=== PATIENT | female | born 1940 | race Hispanic/Latino ===

== ENCOUNTER → 2017-07-10 | Outpatient (CLI) | payer OTHER ==
[~2017-07-10] MED LIST: AEC81 PO; ALBUTEROL SULFATE 0.083% 2.5 MG/3 ML INH IH ONE; ALLO100T PO; ALPR0.5T8 PO; APIX5TAB PO; ASCO1TAB13 PO; ATOR10TA69 PO; CALC-691 PO; CALC1TAB15 PO; CALCIUM CARB PO; CARV12.511 PO; CARV6.25 PO; CYAN500 PO; CYCL30DR OU; DIGO125T87 PO; DILT120C89 PO; DOXY100C2 PO; ESTR42.53 VG; FAMO20TA8 PO; FERS325 PO; FOLI1TAB15 PO; FURO-151 PO; FURO20TA4 PO; FURO20TA6 PO; FURO40TA7 PO; KYOLIC PO; LISI2.5T2 PO; MELA5CAP PO; METO75TA PO; MILK OF MAG; MULT-1258 PO; ONDA4TAB4 PO; POLY17PO4 PO; POTA-9 PO; POTA10TA14 PO; PYRI100T2 PO; ROSU5TAB PO; SODI30SP3 EN; SPIR25TA4 PO; THIA100T75 PO; TOLT4CAP PO; TRAM50TA4 PO; VENL-53 PO; ZINC220C6 PO; ZINC50TA4 PO; ZOFRAN; [UNRECOGNIZED DRUG - OTHER]; estrogen VG
== END | disposition home or self-care (01) ==
LOC: RESP 08:40
PROVIDERS: ATTEND Internal Medicine
DX: J90 Pleural effusion, not elsewhere classified (principal)
CPT/HCPCS: 94060; 94727; 94729

== ENCOUNTER 2017-09-13 13:53 | Inpatient (IN) | payer OTHER ==
[~2017-09-13] VITALS: Ht 154.9 cm; Wt 73.2 kg
[~2017-09-13 13:53] MED LIST changes: -ALBUTEROL SULFATE 0.083% 2.5 MG/3 ML INH IH ONE; -ATOR10TA69 PO; -CALC1TAB15 PO; -CALCIUM CARB PO; -CARV12.511 PO; -CARV6.25 PO; -DIGO125T87 PO; -DOXY100C2 PO; -FAMO20TA8 PO; -FERS325 PO; -FURO20TA4 PO; -FURO20TA6 PO; -FURO40TA7 PO; -LISI2.5T2 PO; -MELA5CAP PO; -MILK OF MAG; -ONDA4TAB4 PO; -POTA-9 PO; -SPIR25TA4 PO; -VENL-53 PO; -ZINC220C6 PO; -ZOFRAN; -[UNRECOGNIZED DRUG - OTHER]; -estrogen VG
[2017-09-13 14:23] LABS: BASOPHILS % (AUTO) 0.4 % (0.0-5.0); EOSINOPHILS % (AUTO) 1.6 % (0.0-8.0); HEMATOCRIT 31.3 % (36-48); LYMPHOCYTES % (AUTO) 5.6 % (21.0-51.0); MEAN CORPUSCULAR HEMOGLOBIN 21.8 pg (27.0-33.0); MEAN CORPUSCULAR HGB CONC 30.5 g/dL (32.0-36.0); MEAN CORPUSCULAR VOLUME 71.7 fL (79-99); MONOCYTES % (AUTO) 10.9 % (3.0-13.0); NEUTROPHILS % (AUTO) 81.5 % (40.0-77.0); PLATELET COUNT (AUTO) 228 K/uL (130-400); RED BLOOD CELL COUNT(AUTO) 4.36 MIL/uL (4.00-5.50); RED CELL DISTRIBUTION WIDTH 20.9 % (11.0-15.5)
[2017-09-13 14:35] LABS: CREATININE 1.1 mg/dL (0.5-1.5)
[2017-09-13 14:46] LABS: B-TYPE NATRIURETIC PEPTIDE 776 pg/mL (0-100)
[2017-09-13 14:49] LABS: BILIRUBIN,TOTAL 1.1 mg/dL (0.2-1.0); T4 (THYROXINE) 7.4 mcg/dL (4.7-13.3); THYROID STIMULATING HORMONE 2.91 uIU/mL (0.36-3.74); TOTAL PROTEIN, SERUM 6.6 g/dL (6.0-8.3)
[2017-09-13] MEDS ORDERED: FUROSEMIDE 10 MG/ML 4ML VIAL ONE (15:17)
[2017-09-13 15:45] LABS: HEMOGLOBIN A1C 5.9 % (4.0-6.0)
[2017-09-13 15:55] VITALS: BP 118/69
[2017-09-13] MEDS ORDERED: POTA-9 PO (16:10)
[2017-09-13] MEDS ORDERED: CALC1TAB15 PO (16:10)
[2017-09-13] MEDS ORDERED: FURO20TA4 PO (16:10)
[2017-09-13] MEDS ORDERED: ZINC220C6 PO (16:10)
[2017-09-13] MEDS ORDERED: GLUCAGON 1MG KIT 1 MG ML IM PRN (16:15)
[2017-09-13] MEDS ORDERED: DEXTROSE 50%-WATER 50 ML DISP.SYRIN IV PRN (16:15)
[2017-09-13] MEDS ORDERED: SODIUM CHLORIDE 0.9% 10 ML VIAL IVP SCH (16:30)
[2017-09-13] MEDS ORDERED: DIPHENHYDRAMINE HCL 25 MG CAPSULE PO PRN (16:30)
[2017-09-13] MEDS ORDERED: ACETAMINOPHEN 325 MG TAB PO PRN (16:30)
[2017-09-13] MEDS: INSULIN HUMULIN R 100 UNIT/ML 3ML SQ SCH ×2 (16:30→20:24)
[2017-09-13] MEDS ORDERED: ONDANSETRON HCL MDV 20ML 2 MG/ML VIAL IVP PRN (16:45)
[2017-09-13] MEDS: POTASSIUM CHLORIDE 10% ELIXIR 20 MEQ/15 ML UDCUP PO PRN (17:01)
[2017-09-13] MEDS: POTASSIUM CHLORIDE 20 MEQ ERTAB PO PRN (17:01)
[2017-09-13] MEDS: POTASSIUM CHLORIDE 20MEQ/100ML 100 ML IV PRN (17:02)
[2017-09-13] MEDS: LIDOCAINE HCL-MPF 1% 2ML VIAL IVP PRN (17:02)
[2017-09-13 19:32] VITALS: BP 97/58
[2017-09-13] MEDS: FUROSEMIDE 10 MG/ML 4ML VIAL IV SCH (20:22)
[2017-09-13 23:13] VITALS: BP 109/58
[2017-09-14 00:18] LABS: CREATINE KINASE MB 0.8 ng/mL (0.5-3.6); CREATINE KINASE, TOTAL 27 U/L (21-232); MYOGLOBIN 38 ng/mL (10-92); TROPONIN I < 0.04 ng/mL (0.00-0.06)
[2017-09-14 01:05] LABS: % IRON SATURATION 4.5 % (22-44); FERRITIN 21 ng/mL (15-150); IRON, SERUM 17 mcg/dL (50-170); TOTAL IRON BINDING CAPACITY 373 mcg/dL (250-450)
[2017-09-14 03:44] VITALS: BP 99/57
[2017-09-14 06:01] LABS: RETICULOCYTE % (AUTO) 1.98 % (0.42-2.23)
[2017-09-14] MEDS: INSULIN HUMULIN R 100 UNIT/ML 3ML SQ SCH ×4 (06:16→21:00)
[2017-09-14] MEDS: FUROSEMIDE 10 MG/ML 4ML VIAL IV SCH ×2 (06:16→13:42)
[2017-09-14 06:17] LABS: POTASSIUM 3.3 mmol/L (3.5-5.1)
[2017-09-14] MEDS: POTASSIUM CHLORIDE 10% ELIXIR 20 MEQ/15 ML UDCUP PO PRN (06:24)
[2017-09-14] MEDS: POTASSIUM CHLORIDE 20MEQ/100ML 100 ML IV PRN (06:25)
[2017-09-14 06:30] LABS: CREATINE KINASE, TOTAL 24 U/L (21-232); MYOGLOBIN 35 ng/mL (10-92); TROPONIN I < 0.04 ng/mL (0.00-0.06)
[2017-09-14 07:00] VITALS: BP 103/65
[2017-09-14] MEDS: FAMOTIDINE 20MG TAB 20 MG TAB PO SCH ×2 (08:14→22:13)
[2017-09-14] MEDS ORDERED: COMPOUND IV MISC 1 EACH IVSOLN MISC PRN (10:00)
[2017-09-14 11:00] VITALS: BP 102/55
[2017-09-14] MEDS: IRON SUCROSE COMPLEX 100 MG in SODIUM CHLORIDE 0.9% 50 ML IV SCH (12:05)
[2017-09-14 16:00] VITALS: BP 98/60
[2017-09-14 19:47] VITALS: BP 94/58
[2017-09-14] MEDS ORDERED: METOPROLOL TARTRATE 25 MG TAB PO SCH ×2 (21:00)
[2017-09-14] MEDS: ATORVASTATIN CALCIUM 10 MG TABLET PO SCH (22:13)
[2017-09-14] MEDS: ALPRAZOLAM 0.5 MG TABLET PO SCH (22:13)
[2017-09-14] MEDS: METOPROLOL TARTRATE 25 MG TAB PO SCH (22:13)
[2017-09-14 23:31] VITALS: BP 104/49
[2017-09-15 03:47] VITALS: BP 99/51
[2017-09-15 04:18] LABS: MEAN CORPUSCULAR HEMOGLOBIN 22.4 pg (27.0-33.0); MEAN CORPUSCULAR HGB CONC 31.2 g/dL (32.0-36.0); MEAN CORPUSCULAR VOLUME 71.6 fL (79-99); PLATELET COUNT (AUTO) 198 K/uL (130-400); RED BLOOD CELL COUNT(AUTO) 3.63 MIL/uL (4.00-5.50); WHITE BLOOD COUNT (AUTO) 5.4 K/uL (4.8-10.8)
[2017-09-15 04:41] LABS: POTASSIUM 2.7 mmol/L (3.5-5.1)
[2017-09-15 04:45] LABS: B-TYPE NATRIURETIC PEPTIDE 467 pg/mL (0-100)
[2017-09-15] MEDS: INSULIN HUMULIN R 100 UNIT/ML 3ML SQ SCH ×4 (05:34→21:00)
[2017-09-15] MEDS: POTASSIUM CHLORIDE 20 MEQ ERTAB PO PRN ×2 (05:35→13:54)
[2017-09-15] MEDS: POTASSIUM CHLORIDE 20MEQ/100ML 100 ML IV PRN ×2 (05:36→10:40)
[2017-09-15] MEDS: LIDOCAINE HCL-MPF 1% 2ML VIAL IVP PRN ×2 (05:36→10:40)
[2017-09-15 07:00] VITALS: BP 100/57
[2017-09-15] MEDS ORDERED: DILTIAZEM HCL 120 MG CAP.SR.24H PO SCH (09:00)
[2017-09-15] MEDS: PYRIDOXINE HCL 50 MG TABLET PO SCH (09:00)
[2017-09-15] MEDS ORDERED: ENOXAPARIN SODIUM 40 MG/0.4 ML SYRINGE SQ SCH (09:00)
[2017-09-15] MEDS: DETROL 4 MG PO SCH (09:00)
[2017-09-15] MEDS: POTASSIUM CHLORIDE 10 MEQ/TAB.SA PO SCH (09:00)
[2017-09-15] MEDS ORDERED: SODIUM CHLORIDE 0.9% 250 ML IV ONE (10:14)
[2017-09-15] MEDS: FOLIC ACID 1 MG TABLET PO SCH (10:39)
[2017-09-15] MEDS: CALCIUM CARBONATE 500 MG TABLET PO SCH (10:39)
[2017-09-15] MEDS: POTASSIUM CHLORIDE 10% ELIXIR 20 MEQ/15 ML UDCUP PO PRN (10:39)
[2017-09-15] MEDS: ALLOPURINOL 100 MG TABLET PO SCH (10:39)
[2017-09-15] MEDS: ALPRAZOLAM 0.5 MG TABLET PO SCH ×2 (10:39→20:45)
[2017-09-15] MEDS: METOPROLOL TARTRATE 25 MG TAB PO SCH ×2 (10:39→20:45)
[2017-09-15] MEDS: THIAMINE HCL 100 MG TABLET PO SCH (10:40)
[2017-09-15] MEDS: FUROSEMIDE 10 MG/ML 4ML VIAL IV SCH ×2 (10:41→20:45)
[2017-09-15 10:44] LABS: INR 1.18 (0.85-1.15); PROTHROMBIN TIME 12.1 SEC (9.6-11.6)
[2017-09-15 11:00] VITALS: BP 93/59
[2017-09-15] MEDS: IRON SUCROSE COMPLEX 100 MG in SODIUM CHLORIDE 0.9% 50 ML IV SCH (13:55)
[2017-09-15] MEDS: ASPIRIN 81 MG EC TAB PO SCH (14:00)
[2017-09-15] MEDS: FAMOTIDINE 20MG TAB 20 MG TAB PO SCH ×2 (14:00→20:45)
[2017-09-15] MEDS: ZINC SULFATE 220 CAPSULE PO SCH (14:00)
[2017-09-15 16:00] VITALS: BP 109/53
[2017-09-15 20:08] VITALS: BP 103/58
[2017-09-15] MEDS: ATORVASTATIN CALCIUM 10 MG TABLET PO SCH (20:56)
[2017-09-15 23:30] VITALS: BP 118/65
[2017-09-16 03:56] VITALS: BP 95/53
[2017-09-16 04:16] LABS: HEMATOCRIT 25.8 % (36-48); MEAN CORPUSCULAR HEMOGLOBIN 23.1 pg (27.0-33.0); MEAN CORPUSCULAR HGB CONC 32.5 g/dL (32.0-36.0); NUCLEATED RED BLOOD CELLS 0.2 % (0.0-0.19); PLATELET COUNT (AUTO) 186 K/uL (130-400); RED BLOOD CELL COUNT(AUTO) 3.64 MIL/uL (4.00-5.50); RED CELL DISTRIBUTION WIDTH 21.1 % (11.0-15.5); WHITE BLOOD COUNT (AUTO) 5.9 K/uL (4.8-10.8)
[2017-09-16 04:25] LABS: MAGNESIUM 1.8 mg/dL (1.80-2.40); POTASSIUM 3.3 mmol/L (3.5-5.1)
[2017-09-16 05:04] LABS: LYMPHOCYTES % (MANUAL) 10 % (22-44); METAMYELOCYTES % 1 % (0-0); MONOCYTES % (MANUAL) 7 % (2-9); SEGMENTED NEUTROPHILS % 82 % (40-70)
[2017-09-16 05:05] LABS: MAN.DIFF COMMENT-IMPRESSION MANUAL DIFFERENTIAL
[2017-09-16] MEDS: MAGNESIUM 2GM PREMIX 50ML 50 ML IV SCH (06:01)
[2017-09-16] MEDS: POTASSIUM CHLORIDE 20 MEQ ERTAB PO PRN (06:02)
[2017-09-16] MEDS: INSULIN HUMULIN R 100 UNIT/ML 3ML SQ SCH ×4 (06:43→21:00)
[2017-09-16 07:58] VITALS: BP 96/61
[2017-09-16] MEDS ORDERED: LIDOCAINE HCL 1% 20 ML VIAL ONE (08:52)
[2017-09-16] MEDS: DETROL 4 MG PO SCH (09:00)
[2017-09-16] MEDS: PYRIDOXINE HCL 50 MG TABLET PO SCH (09:00)
[2017-09-16] MEDS: CALCIUM CARBONATE 500 MG TABLET PO SCH (10:19)
[2017-09-16] MEDS: FOLIC ACID 1 MG TABLET PO SCH (10:19)
[2017-09-16] MEDS: ALPRAZOLAM 0.5 MG TABLET PO SCH ×2 (10:19→21:42)
[2017-09-16] MEDS: THIAMINE HCL 100 MG TABLET PO SCH (10:19)
[2017-09-16] MEDS: ALLOPURINOL 100 MG TABLET PO SCH (10:20)
[2017-09-16] MEDS: ASPIRIN 81 MG EC TAB PO SCH (10:20)
[2017-09-16] MEDS: IRON SUCROSE COMPLEX 100 MG in SODIUM CHLORIDE 0.9% 50 ML IV SCH (10:20)
[2017-09-16] MEDS: POTASSIUM CHLORIDE 10 MEQ/TAB.SA PO SCH (10:20)
[2017-09-16] MEDS: FAMOTIDINE 20MG TAB 20 MG TAB PO SCH ×2 (10:27→21:46)
[2017-09-16] MEDS: ZINC SULFATE 220 CAPSULE PO SCH (10:27)
[2017-09-16] MEDS: FUROSEMIDE 10 MG/ML 4ML VIAL IV SCH (10:27)
[2017-09-16] MEDS: ENOXAPARIN SODIUM 60 MG/0.6 ML SQ SCH ×2 (10:30→21:44)
[2017-09-16 11:06] LABS: GLUCOSE,BODY FLUID 115 mg/dL (1-40)
[2017-09-16] MEDS: METOPROLOL TARTRATE 50 MG TAB PO SCH ×3 (11:07→21:42)
[2017-09-16 11:18] VITALS: BP 110/75
[2017-09-16 12:14] LABS: APPEARANCE BODY FLUID TURBID (CLEAR); BODY FLUID WBC 225 /cu. mm.; COLOR,BODY FLUID RED (LT YELLOW); SPECIMENTYPE,BODY FLUID THORACENTESIS
[2017-09-16 12:15] LABS: BODY FLUID RBC 34638 /cu. mm.
[2017-09-16 12:34] LABS: TOTAL VOLUME,BODY FLUID 7000 mL
[2017-09-16 12:44] LABS: BF LYMPHOCYTE 20 %; BF MESOTHELIAL 70 %; BF MONOCYTE 8 %
[2017-09-16 12:45] LABS: PH, BODY FLUID 8
[2017-09-16 16:05] VITALS: BP 110/57
[2017-09-16 19:59] VITALS: BP 92/56
[2017-09-16] MEDS ORDERED: ENOXAPARIN SODIUM 0.5 MG/KG EACH SQ SCH (21:00)
[2017-09-16] MEDS: ATORVASTATIN CALCIUM 10 MG TABLET PO SCH (21:41)
[2017-09-16 23:37] VITALS: BP 99/59
[2017-09-17 04:00] VITALS: BP 101/67
[2017-09-17 04:07] LABS: CREATININE 0.9 mg/dL (0.5-1.5); POTASSIUM 3.2 mmol/L (3.5-5.1)
[2017-09-17 07:00] VITALS: BP 104/57
[2017-09-17] MEDS: INSULIN HUMULIN R 100 UNIT/ML 3ML SQ SCH ×5 (07:26→21:00)
[2017-09-17] MEDS ORDERED: AMIODARONE HCL 150 MG in DEXTROSE 5%-WATER 100 ML IV SCH (08:30)
[2017-09-17] MEDS: METOPROLOL TARTRATE 50 MG TAB PO SCH ×4 (09:00→21:44)
[2017-09-17] MEDS: PYRIDOXINE HCL 50 MG TABLET PO SCH (09:00)
[2017-09-17] MEDS: DETROL 4 MG PO SCH (09:00)
[2017-09-17] MEDS: ASPIRIN 81 MG EC TAB PO SCH (10:43)
[2017-09-17] MEDS: THIAMINE HCL 100 MG TABLET PO SCH (10:43)
[2017-09-17] MEDS: ALPRAZOLAM 0.5 MG TABLET PO SCH ×2 (10:44→21:44)
[2017-09-17] MEDS: CALCIUM CARBONATE 500 MG TABLET PO SCH (10:44)
[2017-09-17] MEDS: FOLIC ACID 1 MG TABLET PO SCH (10:44)
[2017-09-17] MEDS: ALLOPURINOL 100 MG TABLET PO SCH (10:45)
[2017-09-17] MEDS: POTASSIUM CHLORIDE 10 MEQ/TAB.SA PO SCH (10:45)
[2017-09-17] MEDS: ENOXAPARIN SODIUM 60 MG/0.6 ML SQ SCH ×2 (10:47→20:36)
[2017-09-17] MEDS: IRON SUCROSE COMPLEX 100 MG in SODIUM CHLORIDE 0.9% 50 ML IV SCH (11:07)
[2017-09-17] MEDS: ZINC SULFATE 220 CAPSULE PO SCH (11:07)
[2017-09-17] MEDS: POTASSIUM CHLORIDE 20 MEQ ERTAB PO PRN ×3 (11:07→18:34)
[2017-09-17] MEDS: FAMOTIDINE 20MG TAB 20 MG TAB PO SCH ×2 (11:07→21:44)
[2017-09-17 11:42] VITALS: BP 94/58
[2017-09-17] MEDS: TRAMADOL HCL 50 MG TABLET PO PRN (16:31)
[2017-09-17 16:42] VITALS: BP 100/68
[2017-09-17 19:53] VITALS: BP 94/53
[2017-09-17] MEDS: ENOXAPARIN SODIUM 100 MG/1 ML SQ SCH (21:43)
[2017-09-17] MEDS: ATORVASTATIN CALCIUM 10 MG TABLET PO SCH (21:44)
[2017-09-18] VITALS (9 sets, daily range): BP systolic 87–105; BP diastolic 52–64
[2017-09-18 03:54] LABS: BASOPHILS % (AUTO) 0.8 % (0.0-5.0); EOSINOPHILS % (AUTO) 2.9 % (0.0-8.0); HEMATOCRIT 26.7 % (36-48); LYMPHOCYTES % (AUTO) 7.6 % (21.0-51.0); MEAN CORPUSCULAR HEMOGLOBIN 23.8 pg (27.0-33.0); MEAN CORPUSCULAR VOLUME 72.2 fL (79-99); MONOCYTES % (AUTO) 10.8 % (3.0-13.0); NEUTROPHILS % (AUTO) 77.9 % (40.0-77.0); NUCLEATED RED BLOOD CELLS 0.2 % (0.0-0.19); PLATELET COUNT (AUTO) 189 K/uL (130-400); RED CELL DISTRIBUTION WIDTH 21.1 % (11.0-15.5); WHITE BLOOD COUNT (AUTO) 5.6 K/uL (4.8-10.8)
[2017-09-18 04:10] LABS: POTASSIUM 3.8 mmol/L (3.5-5.1)
[2017-09-18] MEDS: INSULIN HUMULIN R 100 UNIT/ML 3ML SQ SCH ×3 (06:57→20:51)
[2017-09-18] MEDS: DETROL 4 MG PO SCH (09:00)
[2017-09-18] MEDS: ENOXAPARIN SODIUM 60 MG/0.6 ML SQ SCH (09:00)
[2017-09-18] MEDS: ZINC SULFATE 220 CAPSULE PO SCH (09:00)
[2017-09-18] MEDS: PYRIDOXINE HCL 50 MG TABLET PO SCH (09:00)
[2017-09-18] MEDS: METOPROLOL TARTRATE 50 MG TAB PO SCH ×3 (09:00→20:55)
[2017-09-18] MEDS: ALPRAZOLAM 0.5 MG TABLET PO SCH ×2 (09:00→20:59)
[2017-09-18] MEDS: IRON SUCROSE COMPLEX 100 MG in SODIUM CHLORIDE 0.9% 50 ML IV SCH (09:00)
[2017-09-18] MEDS: ALLOPURINOL 100 MG TABLET PO SCH (09:28)
[2017-09-18] MEDS: FAMOTIDINE 20MG TAB 20 MG TAB PO SCH ×2 (09:28→20:59)
[2017-09-18] MEDS: FOLIC ACID 1 MG TABLET PO SCH (09:28)
[2017-09-18] MEDS: THIAMINE HCL 100 MG TABLET PO SCH (09:28)
[2017-09-18] MEDS: POTASSIUM CHLORIDE 10 MEQ/TAB.SA PO SCH (09:28)
[2017-09-18] MEDS: CALCIUM CARBONATE 500 MG TABLET PO SCH (09:28)
[2017-09-18] MEDS: ASPIRIN 81 MG EC TAB PO SCH (09:28)
[2017-09-18] MEDS: ENOXAPARIN SODIUM 100 MG/1 ML SQ SCH ×2 (09:29→21:00)
[2017-09-18] MEDS: ATORVASTATIN CALCIUM 10 MG TABLET PO SCH (20:59)
[2017-09-18] MEDS ORDERED: AMIODARONE HCL 200 MG TABLET PO SCH (21:00)
[2017-09-19] VITALS (7 sets, daily range): BP systolic 92–116; BP diastolic 45–66
[2017-09-19 03:55] LABS: HEMATOCRIT 27.6 % (36-48); MEAN CORPUSCULAR HEMOGLOBIN 23.8 pg (27.0-33.0); MEAN CORPUSCULAR HGB CONC 32.3 g/dL (32.0-36.0); MEAN CORPUSCULAR VOLUME 73.5 fL (79-99); NUCLEATED RED BLOOD CELLS 0.1 % (0.0-0.19); PLATELET COUNT (AUTO) 193 K/uL (130-400); RED BLOOD CELL COUNT(AUTO) 3.76 MIL/uL (4.00-5.50); RED CELL DISTRIBUTION WIDTH 21.6 % (11.0-15.5); WHITE BLOOD COUNT (AUTO) 5.5 K/uL (4.8-10.8)
[2017-09-19 04:06] LABS: CREATININE 0.9 mg/dL (0.5-1.5); POTASSIUM 3.5 mmol/L (3.5-5.1)
[2017-09-19] MEDS: INSULIN HUMULIN R 100 UNIT/ML 3ML SQ SCH ×4 (06:01→20:59)
[2017-09-19] MEDS ORDERED: DIGOXIN 250 MCG/ML 2ML AMP IV SCH (07:45)
[2017-09-19] MEDS: FAMOTIDINE 20MG TAB 20 MG TAB PO SCH ×2 (08:16→20:23)
[2017-09-19] MEDS: ASPIRIN 81 MG EC TAB PO SCH (08:16)
[2017-09-19] MEDS: ALLOPURINOL 100 MG TABLET PO SCH (08:17)
[2017-09-19] MEDS: CALCIUM CARBONATE 500 MG TABLET PO SCH (08:17)
[2017-09-19] MEDS: IRON SUCROSE COMPLEX 100 MG in SODIUM CHLORIDE 0.9% 50 ML IV SCH (08:17)
[2017-09-19] MEDS: THIAMINE HCL 100 MG TABLET PO SCH (08:17)
[2017-09-19] MEDS: POTASSIUM CHLORIDE 10 MEQ/TAB.SA PO SCH (08:17)
[2017-09-19] MEDS: FOLIC ACID 1 MG TABLET PO SCH (08:17)
[2017-09-19] MEDS: ENOXAPARIN SODIUM 100 MG/1 ML SQ SCH ×2 (08:19→20:23)
[2017-09-19] MEDS: PYRIDOXINE HCL 50 MG TABLET PO SCH (09:00)
[2017-09-19] MEDS: METOPROLOL TARTRATE 50 MG TAB PO SCH ×2 (09:00→20:24)
[2017-09-19] MEDS: ALPRAZOLAM 0.5 MG TABLET PO SCH ×2 (09:00→20:24)
[2017-09-19] MEDS: DETROL 4 MG PO SCH (09:00)
[2017-09-19] MEDS: ZINC SULFATE 220 CAPSULE PO SCH (09:00)
[2017-09-19] MEDS: AMIODARONE HCL 200 MG TABLET PO SCH (10:38)
[2017-09-19] MEDS: FUROSEMIDE 10 MG/ML 4ML VIAL IV SCH ×2 (10:39→22:09)
[2017-09-19] MEDS: DIGOXIN 250 MCG/ML 2ML AMP IV SCH ×2 (14:00→22:00)
[2017-09-19] MEDS: ATORVASTATIN CALCIUM 10 MG TABLET PO SCH (20:23)
[2017-09-20] MEDS: DIGOXIN 250 MCG/ML 2ML AMP IV SCH ×2 (02:15→12:43)
[2017-09-20 03:29] LABS: CREATININE 0.9 mg/dL (0.5-1.5)
[2017-09-20 03:30] VITALS: BP 99/45
[2017-09-20] MEDS: POTASSIUM CHLORIDE 20 MEQ ERTAB PO PRN ×3 (03:51→12:34)
[2017-09-20] MEDS: INSULIN HUMULIN R 100 UNIT/ML 3ML SQ SCH ×4 (05:57→20:01)
[2017-09-20 07:26] VITALS: BP 105/48
[2017-09-20] MEDS: DETROL 4 MG PO SCH (09:00)
[2017-09-20] MEDS: POTASSIUM CHLORIDE 10 MEQ/TAB.SA PO SCH ×2 (09:00→09:38)
[2017-09-20] MEDS: CALCIUM CARBONATE 500 MG TABLET PO SCH (09:38)
[2017-09-20] MEDS: METOPROLOL TARTRATE 50 MG TAB PO SCH ×2 (09:38→20:28)
[2017-09-20] MEDS: FUROSEMIDE 40 MG TABLET PO SCH (09:38)
[2017-09-20] MEDS: THIAMINE HCL 100 MG TABLET PO SCH (09:38)
[2017-09-20] MEDS: FOLIC ACID 1 MG TABLET PO SCH (09:38)
[2017-09-20] MEDS: ALPRAZOLAM 0.5 MG TABLET PO SCH ×2 (09:39→20:28)
[2017-09-20] MEDS: ALLOPURINOL 100 MG TABLET PO SCH (09:39)
[2017-09-20] MEDS: ASPIRIN 81 MG EC TAB PO SCH (09:39)
[2017-09-20] MEDS: AMIODARONE HCL 200 MG TABLET PO SCH (09:39)
[2017-09-20] MEDS: FAMOTIDINE 20MG TAB 20 MG TAB PO SCH ×2 (09:39→20:28)
[2017-09-20] MEDS: ENOXAPARIN SODIUM 100 MG/1 ML SQ SCH ×2 (09:40→20:28)
[2017-09-20] MEDS: IRON SUCROSE COMPLEX 100 MG in SODIUM CHLORIDE 0.9% 50 ML IV SCH (09:41)
[2017-09-20 11:21] VITALS: BP 93/42
[2017-09-20] MEDS: ZINC SULFATE 220 CAPSULE PO SCH (12:32)
[2017-09-20] MEDS: PYRIDOXINE HCL 50 MG TABLET PO SCH (12:33)
[2017-09-20 16:19] VITALS: BP 121/59
[2017-09-20 19:45] VITALS: BP 110/56
[2017-09-20] MEDS: ATORVASTATIN CALCIUM 10 MG TABLET PO SCH (20:28)
[2017-09-20 23:23] VITALS: BP 108/64
[2017-09-21 03:21] VITALS: BP 100/53
[2017-09-21 04:16] LABS: HEMATOCRIT 28.4 % (36-48); MEAN CORPUSCULAR HEMOGLOBIN 23.1 pg (27.0-33.0); MEAN CORPUSCULAR HGB CONC 30.9 g/dL (32.0-36.0); MEAN CORPUSCULAR VOLUME 74.9 fL (79-99); PLATELET COUNT (AUTO) 170 K/uL (130-400); RED BLOOD CELL COUNT(AUTO) 3.79 MIL/uL (4.00-5.50); RED CELL DISTRIBUTION WIDTH 22.2 % (11.0-15.5); WHITE BLOOD COUNT (AUTO) 3.9 K/uL (4.8-10.8)
[2017-09-21 04:30] LABS: CREATININE 0.8 mg/dL (0.5-1.5); POTASSIUM 3.6 mmol/L (3.5-5.1)
[2017-09-21 05:11] LABS: B-TYPE NATRIURETIC PEPTIDE 989 pg/mL (0-100)
[2017-09-21] MEDS: INSULIN HUMULIN R 100 UNIT/ML 3ML SQ SCH ×4 (06:01→21:00)
[2017-09-21 07:20] VITALS: BP 99/46
[2017-09-21] MEDS ORDERED: FUROSEMIDE 10 MG/ML 4ML VIAL IV SCH (08:30)
[2017-09-21] MEDS: DETROL 4 MG PO SCH (09:00)
[2017-09-21] MEDS: ZINC SULFATE 220 CAPSULE PO SCH (09:00)
[2017-09-21] MEDS: PYRIDOXINE HCL 50 MG TABLET PO SCH (09:00)
[2017-09-21] MEDS: ALPRAZOLAM 0.5 MG TABLET PO SCH ×2 (09:00→20:18)
[2017-09-21] MEDS: POTASSIUM CHLORIDE 10 MEQ/TAB.SA PO SCH ×2 (09:00→09:05)
[2017-09-21] MEDS: FOLIC ACID 1 MG TABLET PO SCH (09:04)
[2017-09-21] MEDS: CALCIUM CARBONATE 500 MG TABLET PO SCH (09:04)
[2017-09-21] MEDS: FAMOTIDINE 20MG TAB 20 MG TAB PO SCH ×2 (09:04→20:18)
[2017-09-21] MEDS: THIAMINE HCL 100 MG TABLET PO SCH (09:05)
[2017-09-21] MEDS: FUROSEMIDE 40 MG TABLET PO SCH (09:05)
[2017-09-21] MEDS: AMIODARONE HCL 200 MG TABLET PO SCH (09:05)
[2017-09-21] MEDS: ALLOPURINOL 100 MG TABLET PO SCH (09:05)
[2017-09-21] MEDS: ASPIRIN 81 MG EC TAB PO SCH (09:06)
[2017-09-21] MEDS: ENOXAPARIN SODIUM 100 MG/1 ML SQ SCH (09:08)
[2017-09-21 11:17] VITALS: BP 119/50
[2017-09-21] MEDS: IRON SUCROSE COMPLEX 100 MG in SODIUM CHLORIDE 0.9% 50 ML IV SCH (12:38)
[2017-09-21] MEDS: SPIRONOLACTONE 25 MG TAB PO SCH (12:38)
[2017-09-21] MEDS: CARVEDILOL 6.25 MG TABLET PO SCH ×2 (12:39→20:16)
[2017-09-21] MEDS: MILRINONE-D5W 20 MG/100 ML 100 ML IV SCH (12:50)
[2017-09-21 15:49] VITALS: BP 125/68
[2017-09-21] MEDS ORDERED: DIGOXIN 125 MCG TABLET PO SCH (16:00)
[2017-09-21 20:00] VITALS: BP 92/44
[2017-09-21] MEDS: FUROSEMIDE 10 MG/ML 4ML VIAL IV SCH (20:18)
[2017-09-21] MEDS: APIXABAN 5 MG TABLET PO SCH (20:18)
[2017-09-21] MEDS: ATORVASTATIN CALCIUM 10 MG TABLET PO SCH (20:18)
[2017-09-21 23:31] VITALS: BP 95/50
[2017-09-22] MEDS: MILRINONE-D5W 20 MG/100 ML 100 ML IV SCH ×2 (01:38→16:29)
[2017-09-22 03:32] VITALS: BP 120/59
[2017-09-22 04:42] LABS: CREATININE 0.7 mg/dL (0.5-1.5); POTASSIUM 3.3 mmol/L (3.5-5.1)
[2017-09-22] MEDS: POTASSIUM CHLORIDE 20 MEQ ERTAB PO PRN (05:57)
[2017-09-22] MEDS: INSULIN HUMULIN R 100 UNIT/ML 3ML SQ SCH ×4 (06:17→20:59)
[2017-09-22 07:10] VITALS: BP 116/59
[2017-09-22] MEDS: POTASSIUM CHLORIDE 10 MEQ/TAB.SA PO SCH ×2 (08:49→09:00)
[2017-09-22] MEDS: ASPIRIN 81 MG EC TAB PO SCH (08:49)
[2017-09-22] MEDS: ALLOPURINOL 100 MG TABLET PO SCH (08:49)
[2017-09-22] MEDS: FUROSEMIDE 10 MG/ML 4ML VIAL IV SCH ×2 (08:49→20:20)
[2017-09-22] MEDS: FOLIC ACID 1 MG TABLET PO SCH (08:49)
[2017-09-22] MEDS: FAMOTIDINE 20MG TAB 20 MG TAB PO SCH ×2 (08:50→20:20)
[2017-09-22] MEDS: APIXABAN 5 MG TABLET PO SCH ×2 (08:50→20:20)
[2017-09-22] MEDS: THIAMINE HCL 100 MG TABLET PO SCH (08:50)
[2017-09-22] MEDS: SPIRONOLACTONE 25 MG TAB PO SCH (08:50)
[2017-09-22] MEDS: CARVEDILOL 6.25 MG TABLET PO SCH ×2 (08:50→20:21)
[2017-09-22] MEDS: FUROSEMIDE 40 MG TABLET PO SCH (08:51)
[2017-09-22] MEDS: CALCIUM CARBONATE 500 MG TABLET PO SCH (08:51)
[2017-09-22] MEDS: IRON SUCROSE COMPLEX 100 MG in SODIUM CHLORIDE 0.9% 50 ML IV SCH (08:51)
[2017-09-22] MEDS: ZINC SULFATE 220 CAPSULE PO SCH (09:00)
[2017-09-22] MEDS: PYRIDOXINE HCL 50 MG TABLET PO SCH (09:00)
[2017-09-22] MEDS: DETROL 4 MG PO SCH (09:00)
[2017-09-22] MEDS: ALPRAZOLAM 0.5 MG TABLET PO SCH ×2 (09:00→20:20)
[2017-09-22 10:02] LABS: APPEARANCE,URINE Clear (CLEAR); BILIRUBIN,URINE Negative (NEGATIVE); COLOR,URINE Yellow (YELLOW); GLUCOSE, URINE (UA) Negative (NEGATIVE); KETONES,URINE Negative (NEGATIVE); LEUKOCYTE ESTERASE ,URINE Trace (NEGATIVE); NITRATE,URINE Negative (NEGATIVE); OCCULT BLOOD,URINE Negative (NEGATIVE); PROTEIN,URINE Negative (NEGATIVE); UROBILINOGEN,URINE 0.2 mg/dL (0.2-1.0)
[2017-09-22] MEDS: LISINOPRIL 5 MG TABLET PO SCH (10:15)
[2017-09-22 10:19] LABS: BACTERIA,URINE Rare /HPF (None Seen); RBC,URINE None Seen /HPF (0-1); WBC,URINE 0-1 /HPF (0-1)
[2017-09-22 11:10] VITALS: BP 108/61
[2017-09-22 16:10] VITALS: BP 103/59
[2017-09-22 19:48] VITALS: BP 100/53
[2017-09-22] MEDS: ATORVASTATIN CALCIUM 10 MG TABLET PO SCH (20:20)
[2017-09-23] VITALS (7 sets, daily range): BP systolic 91–112; BP diastolic 47–65
[2017-09-23 04:16] LABS: CREATININE 0.7 mg/dL (0.5-1.5); POTASSIUM 3.3 mmol/L (3.5-5.1)
[2017-09-23] MEDS: POTASSIUM CHLORIDE 20MEQ/100ML 100 ML IV PRN ×2 (05:45→09:28)
[2017-09-23] MEDS: LIDOCAINE HCL-MPF 1% 2ML VIAL IVP PRN (05:45)
[2017-09-23] MEDS: INSULIN HUMULIN R 100 UNIT/ML 3ML SQ SCH ×4 (06:32→21:00)
[2017-09-23] MEDS ORDERED: DIGOXIN 250 MCG/ML 2ML AMP IV SCH (08:30)
[2017-09-23] MEDS: PYRIDOXINE HCL 50 MG TABLET PO SCH (09:00)
[2017-09-23] MEDS ORDERED: ALPRAZOLAM 0.5 MG TABLET PO PRN (09:00)
[2017-09-23] MEDS: POTASSIUM CHLORIDE 10 MEQ/TAB.SA PO SCH ×2 (09:00)
[2017-09-23] MEDS: DETROL 4 MG PO SCH (09:00)
[2017-09-23] MEDS: ZINC SULFATE 220 CAPSULE PO SCH (09:00)
[2017-09-23] MEDS ORDERED: SODIUM CHLORIDE 0.9% 100 ML IV ONE (09:16)
[2017-09-23] MEDS: CARVEDILOL 6.25 MG TABLET PO SCH ×2 (09:27→20:52)
[2017-09-23] MEDS: LISINOPRIL 5 MG TABLET PO SCH (09:27)
[2017-09-23] MEDS: MAGNESIUM 2GM PREMIX 50ML 50 ML IV SCH (09:28)
[2017-09-23] MEDS ORDERED: REGADENOSON 0.4 MG/5 ML PF SYG IVP SCH (10:00)
[2017-09-23] MEDS ORDERED: DIGOXIN 250 MCG/ML 2ML AMP IV ONE (12:45)
[2017-09-23] MEDS: ALLOPURINOL 100 MG TABLET PO SCH (14:45)
[2017-09-23] MEDS: POTASSIUM CHLORIDE 10% ELIXIR 20 MEQ/15 ML UDCUP PO PRN (14:45)
[2017-09-23] MEDS: ASPIRIN 81 MG EC TAB PO SCH (14:45)
[2017-09-23] MEDS: FOLIC ACID 1 MG TABLET PO SCH (14:45)
[2017-09-23] MEDS: CALCIUM CARBONATE 500 MG TABLET PO SCH (14:45)
[2017-09-23] MEDS: FAMOTIDINE 20MG TAB 20 MG TAB PO SCH ×2 (14:45→20:50)
[2017-09-23] MEDS: APIXABAN 5 MG TABLET PO SCH ×2 (14:45→20:51)
[2017-09-23] MEDS: IRON SUCROSE COMPLEX 100 MG in SODIUM CHLORIDE 0.9% 50 ML IV SCH (14:46)
[2017-09-23] MEDS: THIAMINE HCL 100 MG TABLET PO SCH (14:46)
[2017-09-23] MEDS: SPIRONOLACTONE 25 MG TAB PO SCH ×2 (14:46→20:51)
[2017-09-23] MEDS: POTASSIUM CHLORIDE 20 MEQ ERTAB PO PRN (14:46)
[2017-09-23] MEDS: FUROSEMIDE 40 MG TABLET PO SCH (14:46)
[2017-09-23] MEDS: DIGOXIN 125 MCG TABLET PO SCH (16:08)
[2017-09-23] MEDS: ATORVASTATIN CALCIUM 10 MG TABLET PO SCH (20:50)
[2017-09-24 03:22] VITALS: BP 103/53
[2017-09-24 04:35] LABS: CREATININE 0.8 mg/dL (0.5-1.5); MAGNESIUM 1.8 mg/dL (1.80-2.40); POTASSIUM 3.8 mmol/L (3.5-5.1)
[2017-09-24] MEDS: POTASSIUM CHLORIDE 20 MEQ ERTAB PO PRN ×2 (06:01→10:57)
[2017-09-24] MEDS: INSULIN HUMULIN R 100 UNIT/ML 3ML SQ SCH ×2 (06:02→11:30)
[2017-09-24 07:33] VITALS: BP 97/42
[2017-09-24 07:59] LABS: CREATININE 0.7 mg/dL (0.5-1.5); POTASSIUM 3.9 mmol/L (3.5-5.1)
[2017-09-24] MEDS: POTASSIUM CHLORIDE 10 MEQ/TAB.SA PO SCH ×2 (09:00)
[2017-09-24] MEDS: PYRIDOXINE HCL 50 MG TABLET PO SCH (09:00)
[2017-09-24] MEDS: DETROL 4 MG PO SCH (09:00)
[2017-09-24] MEDS: ZINC SULFATE 220 CAPSULE PO SCH (09:00)
[2017-09-24 10:32] VITALS: BP 109/44
[2017-09-24] MEDS: CALCIUM CARBONATE 500 MG TABLET PO SCH (10:36)
[2017-09-24] MEDS: ALLOPURINOL 100 MG TABLET PO SCH (10:36)
[2017-09-24] MEDS: APIXABAN 5 MG TABLET PO SCH (10:36)
[2017-09-24] MEDS: FAMOTIDINE 20MG TAB 20 MG TAB PO SCH (10:36)
[2017-09-24] MEDS: ASPIRIN 81 MG EC TAB PO SCH (10:37)
[2017-09-24] MEDS: LISINOPRIL 5 MG TABLET PO SCH (10:37)
[2017-09-24] MEDS: FOLIC ACID 1 MG TABLET PO SCH (10:37)
[2017-09-24] MEDS: TRAMADOL HCL 50 MG TABLET PO PRN (10:37)
[2017-09-24] MEDS: THIAMINE HCL 100 MG TABLET PO SCH (10:37)
[2017-09-24] MEDS: SPIRONOLACTONE 25 MG TAB PO SCH (10:38)
[2017-09-24] MEDS: FUROSEMIDE 40 MG TABLET PO SCH (10:38)
[2017-09-24] MEDS: CARVEDILOL 6.25 MG TABLET PO SCH (10:38)
[2017-09-24] MEDS: IRON SUCROSE COMPLEX 100 MG in SODIUM CHLORIDE 0.9% 50 ML IV SCH (10:57)
[2017-09-24 11:35] VITALS: BP 101/48
[2017-09-24 16:12] VITALS: BP 100/47
[2017-09-24] MEDS: DIGOXIN 125 MCG TABLET PO SCH (16:14)
[2017-11-06] MEDS ORDERED: ZOFRAN (12:34)
[2017-11-06] MEDS ORDERED: MILK OF MAG (12:34)
[2017-11-06] MEDS ORDERED: [UNRECOGNIZED DRUG - OTHER] (12:34)
[2017-11-18] MEDS ORDERED: FURO20TA6 PO (10:42)
[2017-11-18] MEDS ORDERED: ONDA4TAB4 PO (10:42)
[2017-11-18] MEDS ORDERED: VENL-53 PO (10:42)
[2017-11-18] MEDS ORDERED: FAMO20TA8 PO (10:42)
[2017-11-18] MEDS ORDERED: POLY17PO4 PO (10:42)
[2017-11-18] MEDS ORDERED: TRAM50TA4 PO (10:42)
[2017-11-18] MEDS ORDERED: CALCIUM CARB PO (10:42)
[2017-11-18] MEDS ORDERED: DIGO125T87 PO (10:42)
[2017-11-18] MEDS ORDERED: estrogen VG (10:42)
[2017-11-18] MEDS ORDERED: MELA5CAP PO (10:42)
== END 2017-09-24 17:15 | DRG 292 ==
LOC: EDH 13:53 → EDHIP 13:54 → 2AH 14:39
PROVIDERS: ADMIT Internal Medicine; ATTEND Internal Medicine
PROC: 0W993ZZ Drainage of Right Pleural Cavity, Percutaneous Approach (ICD-10-PCS; principal; 2017-09-16)
DX: I11.0 Hypertensive heart disease with heart failure (principal); J84.9 Interstitial pulmonary disease, unspecified; I74.5 Embolism and thrombosis of iliac artery; J90 Pleural effusion, not elsewhere classified; D68.59 Other primary thrombophilia; E11.51 Type 2 diabetes mellitus with diabetic peripheral angiopathy without gangrene; E66.01 Morbid (severe) obesity due to excess calories; I25.5 Ischemic cardiomyopathy; I25.10 Atherosclerotic heart disease of native coronary artery without angina pectoris; I65.29 Occlusion and stenosis of unspecified carotid artery; I50.43 Acute on chronic combined systolic (congestive) and diastolic (congestive) heart failure; D50.9 Iron deficiency anemia, unspecified; E78.5 Hyperlipidemia, unspecified; E87.6 Hypokalemia; F41.9 Anxiety disorder, unspecified; I34.0 Nonrheumatic mitral (valve) insufficiency; I48.0 Paroxysmal atrial fibrillation; I48.2 Chronic atrial fibrillation; I70.8 Atherosclerosis of other arteries; M10.9 Gout, unspecified; Z68.30 Body mass index [BMI] 30.0-30.9, adult; Z79.01 Long term (current) use of anticoagulants; Z79.82 Long term (current) use of aspirin; Z79.899 Other long term (current) drug therapy; Z95.1 Presence of aortocoronary bypass graft; Z87.891 Personal history of nicotine dependence; Z88.1 Allergy status to other antibiotic agents; Z82.49 Family history of ischemic heart disease and other diseases of the circulatory system
CPT/HCPCS: 32555; 36415; 71045; 71046; 78452; 80048; 80053; 81001; 82270; 82550; 82553; 82607; 82728; 82746; 82945; 82948; 83036; 83615; 83735; 83874; 83880; 83986; 84132; 84157; 84436; 84443; 84481; 84484; 85025; 85027; 85610; 85730; 87071; 87205; 88108; 89051; 93017; 93306; 93970; 96374; 97039; A9500; J0282; J1160; J1650; J1756; J1815; J1940; J2260; J2785; J3475; J3480; J3490; J7030; J7060

== ENCOUNTER 2017-10-18 09:06 | Day surgery (SDC) | payer OTHER ==
[~2017-10-18] VITALS: Ht 152.4 cm; Wt 63.6 kg
[~2017-10-18 09:06] MED LIST changes: -ASCO1TAB13 PO; -CALC-691 PO; +CALC1TAB15 PO; -CYAN500 PO; -CYCL30DR OU; -FURO-151 PO; +FURO20TA4 PO; -KYOLIC PO; +POTA-9 PO; -POTA10TA14 PO; -SODI30SP3 EN; +ZINC220C6 PO; -ZINC50TA4 PO
[2017-10-18 10:15] VITALS: BP 106/50
[2017-10-18] MEDS ORDERED: SPIR25TA6 PO (11:08)
[2017-10-18] MEDS ORDERED: ATOR10TA69 PO (11:08)
[2017-10-18] MEDS ORDERED: FERS325 PO (11:08)
[2017-10-18] MEDS ORDERED: CARV6.25 PO (11:08)
[2017-10-18] MEDS ORDERED: FAMO20TA8 PO (11:08)
[2017-10-18] MEDS ORDERED: FURO40TA7 PO (11:17)
[2017-10-18] MEDS ORDERED: LISI2.5T2 PO (11:17)
[2017-10-18] MEDS ORDERED: SODIUM CHLORIDE 0.9% 1000ML 1,000 ML IV ONE (11:22)
[2017-10-18] MEDS ORDERED: PROPOFOL 10 MG/ML 20ML VIAL IV ONE (11:40)
[2017-10-18 12:04] VITALS: BP 97/43
[2017-11-06] MEDS ORDERED: [UNRECOGNIZED DRUG - OTHER] (12:34)
[2017-11-06] MEDS ORDERED: MILK OF MAG (12:34)
[2017-11-06] MEDS ORDERED: ZOFRAN (12:34)
[2017-11-18] MEDS ORDERED: ONDA4TAB4 PO (10:42)
[2017-11-18] MEDS ORDERED: DIGO125T87 PO (10:42)
[2017-11-18] MEDS ORDERED: FURO20TA6 PO (10:42)
[2017-11-18] MEDS ORDERED: VENL-53 PO (10:42)
[2017-11-18] MEDS ORDERED: estrogen VG (10:42)
[2017-11-18] MEDS ORDERED: CALCIUM CARB PO (10:42)
[2017-11-18] MEDS ORDERED: FAMO20TA8 PO (10:42)
[2017-11-18] MEDS ORDERED: TRAM50TA4 PO (10:42)
[2017-11-18] MEDS ORDERED: POLY17PO4 PO (10:42)
[2017-11-18] MEDS ORDERED: MELA5CAP PO (10:42)
== END 2017-10-18 12:40 | disposition home or self-care (01) ==
LOC: ENDO 09:06 → DAH 09:06 → ENDO 12:40
PROVIDERS: ATTEND Internal Medicine Gastroenterology
DX: K29.50 Unspecified chronic gastritis without bleeding (principal); K44.9 Diaphragmatic hernia without obstruction or gangrene; D50.9 Iron deficiency anemia, unspecified; E78.5 Hyperlipidemia, unspecified; F41.9 Anxiety disorder, unspecified; F32.9 Major depressive disorder, single episode, unspecified; E11.9 Type 2 diabetes mellitus without complications; D64.9 Anemia, unspecified; M19.90 Unspecified osteoarthritis, unspecified site; I48.91 Unspecified atrial fibrillation; I11.0 Hypertensive heart disease with heart failure; I50.20 Unspecified systolic (congestive) heart failure; Z98.890 Other specified postprocedural states; Z98.84 Bariatric surgery status; Z79.899 Other long term (current) drug therapy
CPT/HCPCS: 43239; 82948; 88305; 88312; 93005; A4606; J2704; J7030

== ENCOUNTER 2017-11-08 09:28 | Day surgery (SDC) | payer OTHER ==
[~2017-11-08] VITALS: Ht 152.4 cm; Wt 64.0 kg
[~2017-11-08 09:28] MED LIST changes: -AEC81 PO; +ATOR10TA69 PO; +CARV6.25 PO; -DILT120C89 PO; +FERS325 PO; -FURO20TA4 PO; +FURO40TA7 PO; +LISI2.5T2 PO; -METO75TA PO; +MILK OF MAG; -MULT-1258 PO; -POLY17PO4 PO; -ROSU5TAB PO; +SODIUM CHLORIDE 0.9% 1000ML 1,000 ML IV ONE; +SPIR25TA6 PO; -TRAM50TA4 PO; +ZOFRAN; +[UNRECOGNIZED DRUG - OTHER]
[2017-11-08 10:19] VITALS: BP 93/48
[2017-11-08 11:20] VITALS: BP 92/45
[2017-11-18] MEDS ORDERED: TRAM50TA4 PO (10:42)
[2017-11-18] MEDS ORDERED: DIGO125T87 PO (10:42)
[2017-11-18] MEDS ORDERED: ONDA4TAB4 PO (10:42)
[2017-11-18] MEDS ORDERED: MELA5CAP PO (10:42)
[2017-11-18] MEDS ORDERED: VENL-53 PO (10:42)
[2017-11-18] MEDS ORDERED: estrogen VG (10:42)
[2017-11-18] MEDS ORDERED: CALCIUM CARB PO (10:42)
[2017-11-18] MEDS ORDERED: FAMO20TA8 PO (10:42)
[2017-11-18] MEDS ORDERED: FURO20TA6 PO (10:42)
[2017-11-18] MEDS ORDERED: POLY17PO4 PO (10:42)
== END 2017-11-08 12:13 | disposition home or self-care (01) ==
LOC: DAH 09:28 → ENDO 09:28
PROVIDERS: ATTEND Internal Medicine
DX: D12.8 Benign neoplasm of rectum (principal); K57.30 Diverticulosis of large intestine without perforation or abscess without bleeding; D50.9 Iron deficiency anemia, unspecified; E78.5 Hyperlipidemia, unspecified; F41.9 Anxiety disorder, unspecified; F32.9 Major depressive disorder, single episode, unspecified; E11.9 Type 2 diabetes mellitus without complications; M19.90 Unspecified osteoarthritis, unspecified site; I11.0 Hypertensive heart disease with heart failure; Z98.84 Bariatric surgery status; Z98.890 Other specified postprocedural states; K44.9 Diaphragmatic hernia without obstruction or gangrene; Z79.899 Other long term (current) drug therapy; I48.91 Unspecified atrial fibrillation; I50.20 Unspecified systolic (congestive) heart failure
CPT/HCPCS: 45385; 82948 ×4; 93005; A4606; J7030

== ENCOUNTER 2017-11-20 10:55 | Observation (INO) | payer OTHER ==
[2017-11-18 09:37] VITALS: BP 106/58
[2017-11-18 09:43] LABS: BASOPHILS % (AUTO) 0.5 % (0.0-5.0); EOSINOPHILS % (AUTO) 1.4 % (0.0-8.0); HEMATOCRIT 41.8 % (36-48); LYMPHOCYTES % (AUTO) 9.5 % (21.0-51.0); MEAN CORPUSCULAR HEMOGLOBIN 28.5 pg (27.0-33.0); MEAN CORPUSCULAR VOLUME 86.3 fL (79-99); MONOCYTES % (AUTO) 8.7 % (3.0-13.0); NEUTROPHILS % (AUTO) 79.9 % (40.0-77.0); PLATELET COUNT (AUTO) 161 K/uL (130-400); RED BLOOD CELL COUNT(AUTO) 4.84 MIL/uL (4.00-5.50); RED CELL DISTRIBUTION WIDTH 25.8 % (11.0-15.5); WHITE BLOOD COUNT (AUTO) 5.7 K/uL (4.8-10.8)
[2017-11-18 09:54] LABS: CREATININE 0.9 mg/dL (0.5-1.5); PROTHROMBIN TIME 10.5 SEC (9.6-11.6)
[2017-11-20] VITALS (9 sets, daily range): BP systolic 72–123; BP diastolic 40–95
[~2017-11-20] VITALS: Ht 152.4 cm; Wt 64.6 kg
[~2017-11-20 10:55] MED LIST changes: -ALPR0.5T8 PO; -CALC1TAB15 PO; +CALCIUM CARB PO; +DIGO125T87 PO; -ESTR42.53 VG; +FAMO20TA8 PO; +FURO20TA6 PO; -FURO40TA7 PO; +MELA5CAP PO; -MILK OF MAG; +ONDA4TAB4 PO; +POLY17PO4 PO; -SODIUM CHLORIDE 0.9% 1000ML 1,000 ML IV ONE; +SODIUM CHLORIDE 0.9% 1000ML 1,000 ML IV SCH; +TRAM50TA4 PO; +VENL-53 PO; -ZOFRAN; -[UNRECOGNIZED DRUG - OTHER]; +estrogen VG
[2017-11-20] MEDS ORDERED: MIDAZOLAM HCL 1 MG/ML 2ML VIAL ONE (16:03)
[2017-11-20] MEDS ORDERED: ISOVUE-300 100 ML VIAL IV ONE (16:03)
[2017-11-20] MEDS ORDERED: MEPERIDINE-PF 25 MG/ML SYG ONE (16:03)
[2017-11-20] MEDS ORDERED: BUPIVACAINE/PF 0.25% 30ML VIAL IJ ONE (16:04)
[2017-11-20] MEDS ORDERED: LIDOCAINE HCL 2% 20ML ONE (16:04)
[2017-11-20] MEDS ORDERED: CEFAZOLIN SODIUM 1 GM VIAL ONE (16:07)
[2017-11-20] MEDS ORDERED: CEFAZOLIN 1GM / D5W 50ML 100 ML ONE (16:45)
[2017-11-20] MEDS ORDERED: OCTYL 2-CYANOACRYLATE 1 EACH TP ONE (18:01)
[2017-11-20] MEDS ORDERED: ONDANSETRON HCL 4 MG/2 ML VIAL IV PRN (18:30)
[2017-11-20] MEDS ORDERED: CARV12.511 PO (18:30)
[2017-11-20] MEDS ORDERED: POLYETHYLENE GLYCOL 3350 17 GM POWD.PACK PO PRN (18:30)
[2017-11-20] MEDS ORDERED: ACETAMINOPHEN 325 MG TAB PO PRN (18:30)
[2017-11-20] MEDS ORDERED: DOXY100C2 PO (18:30)
[2017-11-20] MEDS ORDERED: OXYBUTYNIN CHLORIDE 5 MG TABLET ONE (19:53)
[2017-11-20] MEDS: CARVEDILOL 6.25 MG TABLET PO SCH (20:51)
[2017-11-20] MEDS: SPIRONOLACTONE 25 MG TAB PO SCH (20:52)
[2017-11-20] MEDS: FAMOTIDINE 20MG TAB 20 MG TAB PO SCH (20:53)
[2017-11-20] MEDS: OXYBUTYNIN CHLORIDE 5 MG TABLET PO SCH (20:53)
[2017-11-20] MEDS ORDERED: ATORVASTATIN CALCIUM 10 MG TABLET PO SCH (21:00)
[2017-11-20] MEDS ORDERED: GUAIFENESIN-DM 200/20 MG 10 ML ONE (23:41)
[2017-11-20] MEDS ORDERED: PHARMACY COMMUNICATION MISC SCH (23:45)
[2017-11-21] VITALS: BP 97/49
[2017-11-21] MEDS: ACETAMINOPHEN-CODEINE 300/30MG TAB PO PRN ×2 (00:50→09:05)
[2017-11-21 03:40] VITALS: BP 91/70
[2017-11-21 04:20] LABS: HEMATOCRIT 38.2 % (36-48); MEAN CORPUSCULAR HEMOGLOBIN 29.8 pg (27.0-33.0); MEAN CORPUSCULAR HGB CONC 34.3 g/dL (32.0-36.0); PLATELET COUNT (AUTO) 166 K/uL (130-400); RED BLOOD CELL COUNT(AUTO) 4.39 MIL/uL (4.00-5.50); RED CELL DISTRIBUTION WIDTH 24.5 % (11.0-15.5); WHITE BLOOD COUNT (AUTO) 6.4 K/uL (4.8-10.8)
[2017-11-21 04:31] LABS: CREATININE 0.9 mg/dL (0.5-1.5); POTASSIUM 3.7 mmol/L (3.5-5.1)
[2017-11-21 04:59] LABS: DIGOXIN 0.77 ng/mL (0.50-2.00)
[2017-11-21] MEDS ORDERED: CEFAZOLIN 1GM / D5W 50ML 50 ML IV SCH (06:00)
[2017-11-21] MEDS ORDERED: CEFAZOLIN SODIUM 1 GM VIAL IVP SCH (06:00)
[2017-11-21 07:00] VITALS: BP 100/58
[2017-11-21] MEDS: OXYBUTYNIN CHLORIDE 5 MG TABLET PO SCH (08:07)
[2017-11-21] MEDS: FAMOTIDINE 20MG TAB 20 MG TAB PO SCH (08:07)
[2017-11-21] MEDS: SPIRONOLACTONE 25 MG TAB PO SCH (08:08)
[2017-11-21 08:09] VITALS: BP 91/70
[2017-11-21] MEDS: CARVEDILOL 6.25 MG TABLET PO SCH (08:09)
[2017-11-21] MEDS ORDERED: VENLAFAXINE HCL XR 37.5 MG CAP PO SCH (09:00)
[2017-11-21] MEDS ORDERED: APIXABAN 5 MG TABLET PO SCH (09:00)
[2017-11-21] MEDS ORDERED: CALCIUM CARBONATE 500 MG TABLET PO SCH (09:00)
[2017-11-21] MEDS ORDERED: ZINC SULFATE 220 CAPSULE PO SCH (09:00)
[2017-11-21] MEDS ORDERED: FOLIC ACID 1 MG TABLET PO SCH (09:00)
[2017-11-21] MEDS ORDERED: FERROUS SULFATE 325 MG TABLET.DR PO SCH (09:00)
[2017-11-21] MEDS ORDERED: DIGOXIN 125 MCG TABLET PO SCH (09:00)
[2017-11-21] MEDS ORDERED: FUROSEMIDE 20 MG TABLET PO SCH (09:00)
[2017-11-21] MEDS ORDERED: ALLOPURINOL 100 MG TABLET PO SCH (09:00)
[2017-11-21] MEDS ORDERED: LISINOPRIL 2.5 MG TABLET PO SCH (09:00)
[2017-11-21] MEDS ORDERED: THIAMINE HCL 100 MG TABLET PO SCH (09:00)
[2017-11-21] MEDS ORDERED: PYRIDOXINE HCL 50 MG TABLET PO SCH (09:00)
[2017-11-21] MEDS ORDERED: POTASSIUM CHLORIDE 10 MEQ/TAB.SA PO SCH (09:00)
[2017-11-21] MEDS ORDERED: **HM** MELATONIN 5MG PO PRN (09:00)
== END 2017-11-21 11:05 | disposition home or self-care (01) ==
LOC: DAH 10:55 → DAHIP 10:56 → 2DH 18:57
PROVIDERS: ADMIT Internal Medicine Cardiovascular Disease; ATTEND Internal Medicine Cardiovascular Disease
DX: I25.5 Ischemic cardiomyopathy (principal); I48.2 Chronic atrial fibrillation; I49.5 Sick sinus syndrome; I73.9 Peripheral vascular disease, unspecified; E78.5 Hyperlipidemia, unspecified; Z88.2 Allergy status to sulfonamides; Z95.1 Presence of aortocoronary bypass graft; Z79.01 Long term (current) use of anticoagulants
CPT/HCPCS: 33225; 33249; 36415 ×2; 71046; 80048 ×2; 80162; 82948; 85025; 85027; 85610; 85730; 93005; A4606; C1769 ×2; C1882; C1894; C1895; C1900; G0378 ×24; J0690 ×2; J2175; J2250; J3490 ×2; J7030; Q9967; 99156; 99157

== ENCOUNTER → 2018-11-12 | Outpatient (CLI) | payer OTHER ==
[~2018-11-12] MED LIST changes: +CARV12.511 PO; -CARV6.25 PO; +DOXY100C2 PO; -LISI2.5T2 PO; -SODIUM CHLORIDE 0.9% 1000ML 1,000 ML IV SCH
== END | disposition home or self-care (01) ==
LOC: SHCH 09:18
PROVIDERS: ATTEND Internal Medicine Cardiovascular Disease
DX: I08.3 Combined rheumatic disorders of mitral, aortic and tricuspid valves (principal); I65.23 Occlusion and stenosis of bilateral carotid arteries
CPT/HCPCS: 93306; 93880

== ENCOUNTER → 2022-08-07 | Outpatient (CLI) | payer MEDICARE ==
[~2022-08-07] MED LIST changes: +ACET250T28 PO; -ALLO100T PO; +CALC-1038 PO; -CALCIUM CARB PO; -CARV12.511 PO; +DIGO125T71 PO; -DIGO125T87 PO; -DOXY100C2 PO; -FERS325 PO; -FURO20TA6 PO; +FURO40TA5 PO; +METO50TA9 PO; -ONDA4TAB4 PO; -POLY17PO4 PO; +POTA-200 PO; -POTA-9 PO; +PYRI100T10 PO; -PYRI100T2 PO; -THIA100T75 PO; -TOLT4CAP PO; -TRAM50TA4 PO; -VENL-53 PO; -ZINC220C6 PO; +ZINC220T4 PO; -estrogen VG
[2022-08-07 12:58] LABS: POTASSIUM 4.2 mmol/L (3.5-5.1)
== END | disposition home or self-care (01) ==
LOC: LAB 11:05
PROVIDERS: ATTEND Internal Medicine Cardiovascular Disease
DX: I50.23 Acute on chronic systolic (congestive) heart failure (principal)
CPT/HCPCS: 36415; 80048; 83880

== ENCOUNTER → 2022-09-05 | Outpatient (CLI) | payer MEDICARE ==
[2022-09-05 12:03] LABS: BASOPHILS % (AUTO) 0.5 % (0.0-5.0); EOSINOPHILS % (AUTO) 1.9 % (0.0-8.0); HEMATOCRIT 38.2 % (36-48); LYMPHOCYTES % (AUTO) 14.9 % (21.0-51.0); MEAN CORPUSCULAR HEMOGLOBIN 27.6 pg (27.0-33.0); MEAN CORPUSCULAR HGB CONC 31.7 g/dL (32.0-36.0); MEAN CORPUSCULAR VOLUME 87.2 fL (79-99); MONOCYTES % (AUTO) 8.1 % (3.0-13.0); NEUTROPHILS % (AUTO) 73.9 % (40.0-77.0); PLATELET COUNT (AUTO) 187 K/uL (130-400); RED BLOOD CELL COUNT(AUTO) 4.38 MIL/uL (4.00-5.50); WHITE BLOOD COUNT (AUTO) 5.9 K/uL (4.8-10.8)
[2022-09-05 12:04] LABS: CREATININE 1.7 mg/dL (0.5-1.5); MAGNESIUM 2.2 mg/dL (1.80-2.40); POTASSIUM 4.2 mmol/L (3.5-5.1)
== END | disposition home or self-care (01) ==
LOC: LAB 10:02
PROVIDERS: ATTEND Internal Medicine Cardiovascular Disease
DX: I10 Essential (primary) hypertension (principal); E78.5 Hyperlipidemia, unspecified
CPT/HCPCS: 36415; 80048; 83735; 83880; 85025

== ENCOUNTER 2022-10-13 21:10 | Emergency (ER) | payer MEDICARE ==
[2022-10-13] MEDS ORDERED: AMIODARONE 150MG VIAL IV ONE (21:11)
[2022-10-13] MEDS ORDERED: EPINEPHRINE 1MG/10ML(1:10,000) 0.1 MG/ML SYG IVP ONE (21:11)
[2022-10-13] MEDS ORDERED: SODIUM BICARB 8.4% 50ML SYRINGE IVP ONE (21:11)
== END 2022-10-13 23:25 ==
LOC: EDH 21:10
DX: I46.9 Cardiac arrest, cause unspecified (principal); E78.00 Pure hypercholesterolemia, unspecified; I10 Essential (primary) hypertension; Z79.01 Long term (current) use of anticoagulants; Z79.899 Other long term (current) drug therapy; Z88.2 Allergy status to sulfonamides; Z95.1 Presence of aortocoronary bypass graft; Z95.810 Presence of automatic (implantable) cardiac defibrillator
CPT/HCPCS: 99291; 92950; J0171; J3490; J0282